=== PATIENT | male | born 1950 | race Caucasian/White ===

== ENCOUNTER 2022-06-14 15:52 | Inpatient (IN) | payer MEDICARE, MEDICAID ==
[~2022-06-14] VITALS: Ht 167.6 cm; Wt 47.6 kg
[2022-06-14] MEDS ORDERED: KETOROLAC 30MG/ML VIAL IV ONE (18:15)
[2022-06-14 19:45] LABS: CHLORIDE 107 mEq/L (98-107)
[2022-06-14 19:50] LABS: ETHANOL BLOOD < 10 mg/dL
[2022-06-14 20:13] LABS: BASOPHILS % 0.7 % (0.0-2.0); EOSINOPHILS % 0.4 % (0.0-5.0); HEMATOCRIT. 31.6 % (42.0-52.0); HEMOGLOBIN. 10.4 g/dL (14.0-18.0); LYMPHOCYTES % 10.5 % (20.0-50.0); MEAN CORPUSCULAR HEMOGLOBIN 29.4 pg (28.0-32.0); MEAN CORPUSCULAR VOLUME 88.9 fL (80.0-94.0); NEUTROPHILS % 78.4 % (40.0-76.0); PLATELET 179 x1000/uL (130-400); RED BLOOD CELL COUNT 3.55 mill/uL (4.7-6.1); RED CELL DISTRIBUTION WIDTH 13.9 % (11.6-14.6)
[2022-06-14] MEDS ORDERED: KETOROLAC 30MG/ML VIAL IV NR (21:00)
[2022-06-15] MEDS ORDERED: PANTOPRAZOLE SODIUM 40 MG/VIAL IV ONE (01:45)
[2022-06-15] MEDS ORDERED: MORPHINE SULFATE 2 MG/ML CPJ (NOT FOR IM USE) IV ONE (02:30)
[2022-06-15 06:22] LABS: BASOPHILS % 0.2 % (0.0-2.0); EOSINOPHILS % 0.3 % (0.0-5.0); HEMATOCRIT. 22.7 % (42.0-52.0); HEMOGLOBIN. 7.4 g/dL (14.0-18.0); LYMPHOCYTES % 10.8 % (20.0-50.0); MEAN CORPUSCULAR HEMOGLOBIN 29.2 pg (28.0-32.0); MEAN CORPUSCULAR VOLUME 89.3 fL (80.0-94.0); MEAN PLATELET VOLUME 7.8 fl (7.4-10.4); MONOCYTES % 9.7 % (2.0-8.0); PLATELET 173 x1000/uL (130-400); RED BLOOD CELL COUNT 2.55 mill/uL (4.7-6.1); RED CELL DISTRIBUTION WIDTH 13.6 % (11.6-14.6)
[2022-06-15 09:00] VITALS: BP 100/55
[2022-06-15] MEDS: DEXT 5%/0.9% NACL 1,000 ML IV SCH ×2 (11:14→22:15)
[2022-06-15 12:00] VITALS: BP 108/50
[2022-06-15 16:00] VITALS: BP 110/52
[2022-06-15 20:00] VITALS: BP 118/52
[2022-06-15] MEDS: PANTOPRAZOLE SODIUM 40 MG/VIAL IV SCH (22:15)
[2022-06-15] MEDS: ONDANSETRON HCL 4MG/2ML INJ IV PRN (22:15)
[2022-06-15] MEDS ORDERED: NALOXONE HCL 0.4MG/ML VIAL IV PRN (23:00)
[2022-06-15] MEDS: MORPHINE SULFATE 4 MG/ML CPJ (NOT FOR IM USE) IV PRN (23:21)
[2022-06-16] VITALS (7 sets, daily range): BP systolic 98–124; BP diastolic 52–68
[2022-06-16 06:10] LABS: BASOPHILS % 0.3 % (0.0-2.0); EOSINOPHILS % 1.1 % (0.0-5.0); HEMOGLOBIN. 8.3 g/dL (14.0-18.0); LYMPHOCYTES % 13.1 % (20.0-50.0); MEAN CORPUSCULAR HEMOGLOBIN 30.4 pg (28.0-32.0); MEAN CORPUSCULAR VOLUME 91.1 fL (80.0-94.0); MEAN PLATELET VOLUME 8.8 fl (7.4-10.4); MONOCYTES % 8.8 % (2.0-8.0); NEUTROPHILS % 76.7 % (40.0-76.0); PLATELET 232 x1000/uL (130-400); RED BLOOD CELL COUNT 2.74 mill/uL (4.7-6.1)
[2022-06-16 06:23] LABS: CHLORIDE 106 mEq/L (98-107)
[2022-06-16] MEDS: DEXT 5%/0.9% NACL 1,000 ML IV SCH ×2 (06:29→14:00)
[2022-06-16 06:38] LABS: TOTAL IRON BINDING CAPACITY 274 ug/dL (250-450)
[2022-06-16 07:01] LABS: FOLIC ACID (FOLATE) SERUM 6.3 ng/mL (>5.38)
[2022-06-16] MEDS: PANTOPRAZOLE SODIUM 40 MG/VIAL IV SCH ×2 (08:37→21:47)
[2022-06-16] MEDS: MORPHINE SULFATE 4 MG/ML CPJ (NOT FOR IM USE) IV PRN (10:02)
[2022-06-16] MEDS ORDERED: IRON SUCROSE COMPLEX 100 MG/5 ML ML IV SCH (14:00)
[2022-06-16] MEDS: HYDROCODONE/ACETAMINOPHEN 5/325MG TABLET PO PRN (21:01)
[2022-06-17] VITALS: BP 114/61
[2022-06-17] MEDS: DEXT 5%/0.9% NACL 1,000 ML IV SCH ×3 (01:30→22:38)
[2022-06-17 04:00] VITALS: BP 100/45
[2022-06-17] MEDS: HYDROCODONE/ACETAMINOPHEN 5/325MG TABLET PO PRN ×2 (05:54→15:17)
[2022-06-17 08:00] VITALS: BP 95/39
[2022-06-17] MEDS: FOLIC ACID 1MG TABLET PO SCH (09:00)
[2022-06-17] MEDS: PANTOPRAZOLE SODIUM 40 MG/VIAL IV SCH ×2 (11:44→22:37)
[2022-06-17 12:00] VITALS: BP 100/31
[2022-06-17 20:00] VITALS: BP 125/70
[2022-06-18] VITALS (7 sets, daily range): BP systolic 95–119; BP diastolic 41–65
[2022-06-18] MEDS: HYDROCODONE/ACETAMINOPHEN 5/325MG TABLET PO PRN ×3 (01:10→21:05)
[2022-06-18 06:29] LABS: BASOPHILS % 0.2 % (0.0-2.0); EOSINOPHILS % 0.7 % (0.0-5.0); HEMATOCRIT. 21.6 % (42.0-52.0); HEMOGLOBIN. 7.3 g/dL (14.0-18.0); LYMPHOCYTES % 8.2 % (20.0-50.0); MEAN CORPUSCULAR HEMOGLOBIN 30.1 pg (28.0-32.0); MEAN CORPUSCULAR VOLUME 88.9 fL (80.0-94.0); MEAN PLATELET VOLUME 8.3 fl (7.4-10.4); NEUTROPHILS % 81.9 % (40.0-76.0); PLATELET 236 x1000/uL (130-400); RED BLOOD CELL COUNT 2.43 mill/uL (4.7-6.1); RED CELL DISTRIBUTION WIDTH 14.4 % (11.6-14.6)
[2022-06-18 06:33] LABS: CHLORIDE 104 mEq/L (98-107)
[2022-06-18] MEDS: DEXT 5%/0.9% NACL 1,000 ML IV SCH (07:41)
[2022-06-18] MEDS: PANTOPRAZOLE SODIUM 40 MG/VIAL IV SCH (11:22)
[2022-06-18] MEDS: FOLIC ACID 1MG TABLET PO SCH (11:23)
[2022-06-18] MEDS: FLUOXETINE HCL 10 MG CAPSULE PO SCH (15:16)
[2022-06-18] MEDS: ARIPIPRAZOLE 5MG TABLET PO SCH (15:16)
[2022-06-18] MEDS ORDERED: POLYETHYLENE GLYCOL 3350 (17GM) 1 DOSE PACK PO NR (15:45)
[2022-06-18] MEDS: PANTOPRAZOLE 40MG DR TABLET PO SCH (21:05)
[2022-06-18] MEDS: SENNOSIDES 8.6MG TABLET PO SCH (21:05)
[2022-06-19] VITALS (7 sets, daily range): BP systolic 100–121; BP diastolic 42–55
[2022-06-19] MEDS: PANTOPRAZOLE 40MG DR TABLET PO SCH ×2 (06:22→21:37)
[2022-06-19 07:07] LABS: BASOPHILS % 0.3 % (0.0-2.0); EOSINOPHILS % 1.3 % (0.0-5.0); HEMATOCRIT. 21.5 % (42.0-52.0); HEMOGLOBIN. 7.2 g/dL (14.0-18.0); LYMPHOCYTES % 8.4 % (20.0-50.0); MEAN CORPUSCULAR HEMOGLOBIN 30.5 pg (28.0-32.0); MEAN PLATELET VOLUME 8.3 fl (7.4-10.4); MONOCYTES % 10.2 % (2.0-8.0); NEUTROPHILS % 79.8 % (40.0-76.0); PLATELET 267 x1000/uL (130-400); RED BLOOD CELL COUNT 2.36 mill/uL (4.7-6.1); RED CELL DISTRIBUTION WIDTH 14.8 % (11.6-14.6)
[2022-06-19 07:27] LABS: CHLORIDE 102 mEq/L (98-107)
[2022-06-19] MEDS: FOLIC ACID 1MG TABLET PO SCH (09:43)
[2022-06-19] MEDS: DOCUSATE SODIUM 250MG CAPSULE PO SCH ×2 (09:43→09:51)
[2022-06-19] MEDS: ARIPIPRAZOLE 5MG TABLET PO SCH (09:43)
[2022-06-19] MEDS: FLUOXETINE HCL 10 MG CAPSULE PO SCH (09:43)
[2022-06-19] MEDS: HYDROCODONE/ACETAMINOPHEN 5/325MG TABLET PO PRN (12:36)
[2022-06-19] MEDS: HALOPERIDOL LACTATE 5MG/ML VIAL IM PRN (19:18)
[2022-06-19] MEDS: SENNOSIDES 8.6MG TABLET PO SCH (21:37)
[2022-06-20] VITALS (8 sets, daily range): BP systolic 91–132; BP diastolic 44–77
[2022-06-20] MEDS: HALOPERIDOL LACTATE 5MG/ML VIAL IM PRN ×2 (01:57→11:12)
[2022-06-20] MEDS: HYDROCODONE/ACETAMINOPHEN 5/325MG TABLET PO PRN ×3 (03:04→22:03)
[2022-06-20] MEDS: PANTOPRAZOLE 40MG DR TABLET PO SCH ×2 (04:40→20:19)
[2022-06-20 06:21] LABS: CHLORIDE 102 mEq/L (98-107)
[2022-06-20 06:29] LABS: BASOPHILS % 0.3 % (0.0-2.0); EOSINOPHILS % 1.1 % (0.0-5.0); LYMPHOCYTES % 8.4 % (20.0-50.0); MEAN CORPUSCULAR VOLUME 93.8 fL (80.0-94.0); MONOCYTES % 9.2 % (2.0-8.0); PLATELET 232 x1000/uL (130-400); RED CELL DISTRIBUTION WIDTH 14.3 % (11.6-14.6)
[2022-06-20 08:05] LABS: HEMOGLOBIN. 6.9 g/dL (14.0-18.0)
[2022-06-20 08:06] LABS: HEMATOCRIT. 19.7 % (42.0-52.0)
[2022-06-20] MEDS: FOLIC ACID 1MG TABLET PO SCH (09:46)
[2022-06-20] MEDS: FLUOXETINE HCL 10 MG CAPSULE PO SCH (09:46)
[2022-06-20] MEDS: ARIPIPRAZOLE 5MG TABLET PO SCH (09:46)
[2022-06-20] MEDS: SENNOSIDES 8.6MG TABLET PO SCH (20:19)
[2022-06-21] VITALS: BP 109/60
[2022-06-21 03:01] LABS: HEMATOCRIT 26.5 % (42.0-52.0); HEMOGLOBIN 8.8 g/dL (14.0-18.0)
[2022-06-21 04:05] VITALS: BP 108/46
[2022-06-21] MEDS: HYDROCODONE/ACETAMINOPHEN 5/325MG TABLET PO PRN ×3 (05:18→19:56)
[2022-06-21 06:31] LABS: HEMATOCRIT. 24.9 % (42.0-52.0); HEMOGLOBIN. 8.2 g/dL (14.0-18.0); MEAN CORPUSCULAR HEMOGLOBIN 30.9 pg (28.0-32.0); MEAN CORPUSCULAR VOLUME 94.4 fL (80.0-94.0); MEAN PLATELET VOLUME 8.4 fl (7.4-10.4); PLATELET 238 x1000/uL (130-400); RED BLOOD CELL COUNT 2.64 mill/uL (4.7-6.1); RED CELL DISTRIBUTION WIDTH 15.1 % (11.6-14.6)
[2022-06-21 06:53] LABS: CHLORIDE 101 mEq/L (98-107)
[2022-06-21 08:00] VITALS: BP 106/52
[2022-06-21 08:42] LABS: PLATELET ESTIMATE NORMAL
[2022-06-21] MEDS: ARIPIPRAZOLE 5MG TABLET PO SCH ×2 (10:14→20:52)
[2022-06-21] MEDS: FLUOXETINE HCL 10 MG CAPSULE PO SCH (10:14)
[2022-06-21] MEDS: PANTOPRAZOLE 40MG DR TABLET PO SCH ×2 (10:14→20:52)
[2022-06-21] MEDS: DOCUSATE SODIUM 250MG CAPSULE PO SCH (10:15)
[2022-06-21] MEDS: FOLIC ACID 1MG TABLET PO SCH (10:15)
[2022-06-21 12:00] VITALS: BP 135/96
[2022-06-21 16:00] VITALS: BP 109/55
[2022-06-21 20:00] VITALS: BP 136/45
[2022-06-21] MEDS: SENNOSIDES 8.6MG TABLET PO SCH (20:52)
[2022-06-22] VITALS: BP 123/55
[2022-06-22] MEDS: HYDROCODONE/ACETAMINOPHEN 5/325MG TABLET PO PRN ×3 (02:39→18:37)
[2022-06-22 04:00] VITALS: BP 117/59
[2022-06-22] MEDS: PANTOPRAZOLE 40MG DR TABLET PO SCH ×2 (06:14→10:14)
[2022-06-22 06:35] LABS: BASOPHILS % 0.2 % (0.0-2.0); EOSINOPHILS % 0.8 % (0.0-5.0); HEMATOCRIT. 23.2 % (42.0-52.0); HEMOGLOBIN. 7.9 g/dL (14.0-18.0); LYMPHOCYTES % 7.2 % (20.0-50.0); MEAN CORPUSCULAR VOLUME 94.6 fL (80.0-94.0); MEAN PLATELET VOLUME 8.3 fl (7.4-10.4); MONOCYTES % 8.8 % (2.0-8.0); PLATELET 200 x1000/uL (130-400); RED BLOOD CELL COUNT 2.46 mill/uL (4.7-6.1); RED CELL DISTRIBUTION WIDTH 14.6 % (11.6-14.6)
[2022-06-22 06:50] LABS: CHLORIDE 97 mEq/L (98-107)
[2022-06-22 08:00] VITALS: BP 100/45
[2022-06-22] MEDS: FOLIC ACID 1MG TABLET PO SCH (10:14)
[2022-06-22] MEDS: FLUOXETINE HCL 10 MG CAPSULE PO SCH (10:14)
[2022-06-22] MEDS: DOCUSATE SODIUM 250MG CAPSULE PO SCH (10:14)
[2022-06-22] MEDS: ARIPIPRAZOLE 5MG TABLET PO SCH ×2 (10:16→21:14)
[2022-06-22 12:00] VITALS: BP 112/53
[2022-06-22 16:00] VITALS: BP 118/66
[2022-06-22 20:00] VITALS: BP 117/63
[2022-06-22] MEDS: SENNOSIDES 8.6MG TABLET PO SCH (21:14)
[2022-06-23] VITALS: BP 100/51
[2022-06-23] MEDS: HYDROCODONE/ACETAMINOPHEN 5/325MG TABLET PO PRN ×2 (01:02→13:59)
[2022-06-23 04:00] VITALS: BP 107/64
[2022-06-23] MEDS: PANTOPRAZOLE 40MG DR TABLET PO SCH ×2 (06:55→21:16)
[2022-06-23 08:00] VITALS: BP 120/46
[2022-06-23] MEDS: DOCUSATE SODIUM 250MG CAPSULE PO SCH (08:07)
[2022-06-23] MEDS: ARIPIPRAZOLE 5MG TABLET PO SCH ×2 (08:07→21:16)
[2022-06-23] MEDS: FLUOXETINE HCL 10 MG CAPSULE PO SCH (08:07)
[2022-06-23] MEDS: HALOPERIDOL LACTATE 5MG/ML VIAL IM PRN ×2 (08:08→14:12)
[2022-06-23] MEDS: FOLIC ACID 1MG TABLET PO SCH (08:08)
[2022-06-23 11:45] VITALS: BP 107/58
[2022-06-23 15:33] VITALS: BP 96/88
[2022-06-23 20:00] VITALS: BP 107/52
[2022-06-23] MEDS: SENNOSIDES 8.6MG TABLET PO SCH (21:16)
[2022-06-24] VITALS: BP 116/60
[2022-06-24 04:00] VITALS: BP 112/63
[2022-06-24] MEDS: HYDROCODONE/ACETAMINOPHEN 5/325MG TABLET PO PRN ×2 (04:15→18:33)
[2022-06-24] MEDS: PANTOPRAZOLE 40MG DR TABLET PO SCH ×2 (06:38→21:55)
[2022-06-24 07:59] LABS: HEMATOCRIT 24.9 % (42.0-52.0); HEMOGLOBIN 8.3 g/dL (14.0-18.0); MEAN CORPUSCULAR HEMOGLOBIN 30.6 pg (28.0-32.0); MEAN CORPUSCULAR VOLUME 92.2 fL (80.0-94.0); PLATELET 212 x1000/uL (130-400); RED CELL DISTRIBUTION WIDTH 14.7 % (11.6-14.6)
[2022-06-24] MEDS: DOCUSATE SODIUM 250MG CAPSULE PO SCH (09:05)
[2022-06-24] MEDS: ARIPIPRAZOLE 5MG TABLET PO SCH ×2 (09:05→21:55)
[2022-06-24] MEDS: FLUOXETINE HCL 10 MG CAPSULE PO SCH (09:05)
[2022-06-24] MEDS: FOLIC ACID 1MG TABLET PO SCH (09:05)
[2022-06-24 12:00] VITALS: BP 114/41
[2022-06-24] MEDS: HALOPERIDOL LACTATE 5MG/ML VIAL IM PRN (12:10)
[2022-06-24] MEDS ORDERED: SORBITOL 70% SOLN 30ML PO NR (16:45)
[2022-06-24 20:00] VITALS: BP_SYST 10; BP_SYST 108; BP_DIAS 62
[2022-06-24] MEDS: SENNOSIDES 8.6MG TABLET PO SCH (21:00)
[2022-06-25 00:05] VITALS: BP 112/64
[2022-06-25] MEDS: HYDROCODONE/ACETAMINOPHEN 5/325MG TABLET PO PRN ×4 (00:15→20:59)
[2022-06-25 04:00] VITALS: BP 120/66
[2022-06-25 06:27] LABS: BASOPHILS % 0.3 % (0.0-2.0); EOSINOPHILS % 0.8 % (0.0-5.0); HEMATOCRIT. 27.1 % (42.0-52.0); HEMOGLOBIN. 9.2 g/dL (14.0-18.0); LYMPHOCYTES % 8.1 % (20.0-50.0); MEAN CORPUSCULAR VOLUME 94.4 fL (80.0-94.0); MEAN PLATELET VOLUME 8.4 fl (7.4-10.4); MONOCYTES % 8.6 % (2.0-8.0); NEUTROPHILS % 82.2 % (40.0-76.0); PLATELET 204 x1000/uL (130-400); RED BLOOD CELL COUNT 2.87 mill/uL (4.7-6.1); RED CELL DISTRIBUTION WIDTH 14.8 % (11.6-14.6)
[2022-06-25 06:39] LABS: CHLORIDE 99 mEq/L (98-107)
[2022-06-25] MEDS: PANTOPRAZOLE 40MG DR TABLET PO SCH ×2 (06:54→20:59)
[2022-06-25 08:00] VITALS: BP 113/64
[2022-06-25] MEDS: DOCUSATE SODIUM 250MG CAPSULE PO SCH (09:00)
[2022-06-25] MEDS: FLUOXETINE HCL 10 MG CAPSULE PO SCH (09:37)
[2022-06-25] MEDS: ARIPIPRAZOLE 5MG TABLET PO SCH ×2 (09:37→20:59)
[2022-06-25] MEDS: FOLIC ACID 1MG TABLET PO SCH (09:37)
[2022-06-25 12:00] VITALS: BP 119/64
[2022-06-25 16:00] VITALS: BP 118/61
[2022-06-25 20:00] VITALS: BP 139/70
[2022-06-25] MEDS: SENNOSIDES 8.6MG TABLET PO SCH (21:00)
[2022-06-26] VITALS: BP 122/65
[2022-06-26] MEDS: HYDROCODONE/ACETAMINOPHEN 5/325MG TABLET PO PRN ×5 (02:02→22:02)
[2022-06-26 04:00] VITALS: BP 130/68
[2022-06-26] MEDS: PANTOPRAZOLE 40MG DR TABLET PO SCH ×2 (07:14→21:58)
[2022-06-26 07:16] LABS: HEMATOCRIT. 27.1 % (42.0-52.0); HEMOGLOBIN. 8.7 g/dL (14.0-18.0); MEAN CORPUSCULAR HEMOGLOBIN 29.4 pg (28.0-32.0); MEAN CORPUSCULAR VOLUME 91.3 fL (80.0-94.0); MEAN PLATELET VOLUME 8.5 fl (7.4-10.4); PLATELET 182 x1000/uL (130-400); RED BLOOD CELL COUNT 2.97 mill/uL (4.7-6.1); RED CELL DISTRIBUTION WIDTH 15.3 % (11.6-14.6)
[2022-06-26 07:29] LABS: CHLORIDE 99 mEq/L (98-107)
[2022-06-26] MEDS: FOLIC ACID 1MG TABLET PO SCH (09:00)
[2022-06-26] MEDS: FLUOXETINE HCL 10 MG CAPSULE PO SCH ×2 (09:00→10:44)
[2022-06-26] MEDS: DOCUSATE SODIUM 250MG CAPSULE PO SCH (09:00)
[2022-06-26] MEDS: ARIPIPRAZOLE 5MG TABLET PO SCH ×2 (09:00→10:44)
[2022-06-26 10:08] LABS: PLATELET ESTIMATE NORMAL
[2022-06-26 12:00] VITALS: BP 123/72
[2022-06-26 16:00] VITALS: BP 120/72
[2022-06-26 20:00] VITALS: BP 136/85
[2022-06-26] MEDS: SENNOSIDES 8.6MG TABLET PO SCH (21:58)
[2022-06-27 04:00] VITALS: BP 118/68
[2022-06-27 06:27] LABS: HEMATOCRIT. 26.7 % (42.0-52.0); HEMOGLOBIN. 9.1 g/dL (14.0-18.0); MEAN CORPUSCULAR HEMOGLOBIN 31.6 pg (28.0-32.0); MEAN CORPUSCULAR VOLUME 93.3 fL (80.0-94.0); MEAN PLATELET VOLUME 8.5 fl (7.4-10.4); PLATELET 175 x1000/uL (130-400); RED BLOOD CELL COUNT 2.87 mill/uL (4.7-6.1); RED CELL DISTRIBUTION WIDTH 15.3 % (11.6-14.6)
[2022-06-27 06:28] LABS: CHLORIDE 97 mEq/L (98-107)
[2022-06-27] MEDS: PANTOPRAZOLE 40MG DR TABLET PO SCH ×2 (06:43→20:11)
[2022-06-27] MEDS: HYDROCODONE/ACETAMINOPHEN 5/325MG TABLET PO PRN ×2 (06:44→20:12)
[2022-06-27 08:00] VITALS: BP 118/67
[2022-06-27] MEDS: DOCUSATE SODIUM 250MG CAPSULE PO SCH (08:30)
[2022-06-27] MEDS: ARIPIPRAZOLE 5MG TABLET PO SCH ×2 (08:30→20:11)
[2022-06-27] MEDS: FOLIC ACID 1MG TABLET PO SCH (08:30)
[2022-06-27] MEDS: HALOPERIDOL LACTATE 5MG/ML VIAL IM PRN (10:06)
[2022-06-27] MEDS: ONDANSETRON HCL 4MG/2ML INJ IV PRN (10:20)
[2022-06-27 10:23] LABS: PLATELET ESTIMATE NORMAL
[2022-06-27] MEDS ORDERED: ONDANSETRON 4MG ODT PO PRN (16:45)
[2022-06-27] MEDS ORDERED: NALOXONE HCL 0.4MG/ML VIAL IV PRN (18:15)
[2022-06-27 20:09] VITALS: BP 119/69
[2022-06-27] MEDS: SENNOSIDES 8.6MG TABLET PO SCH (20:15)
[2022-06-28] VITALS: BP 100/66
[2022-06-28 04:15] VITALS: BP 122/70
[2022-06-28] MEDS: HYDROCODONE/ACETAMINOPHEN 5/325MG TABLET PO PRN (04:17)
[2022-06-28] MEDS: PANTOPRAZOLE 40MG DR TABLET PO SCH ×2 (06:31→19:38)
[2022-06-28 08:00] VITALS: BP 120/68
[2022-06-28] MEDS: DOCUSATE SODIUM 250MG CAPSULE PO SCH (09:32)
[2022-06-28] MEDS: ARIPIPRAZOLE 5MG TABLET PO SCH ×2 (09:32→19:38)
[2022-06-28] MEDS: FOLIC ACID 1MG TABLET PO SCH (09:32)
[2022-06-28] MEDS: FLUOXETINE HCL 10 MG CAPSULE PO SCH (09:32)
[2022-06-28 10:02] LABS: BASOPHILS % 0.2 % (0.0-2.0); EOSINOPHILS % 0.4 % (0.0-5.0); HEMATOCRIT. 28.8 % (42.0-52.0); HEMOGLOBIN. 9.2 g/dL (14.0-18.0); LYMPHOCYTES % 8.1 % (20.0-50.0); MEAN CORPUSCULAR HEMOGLOBIN 29.1 pg (28.0-32.0); MEAN PLATELET VOLUME 7.9 fl (7.4-10.4); MONOCYTES % 8.6 % (2.0-8.0); NEUTROPHILS % 82.7 % (40.0-76.0); PLATELET 225 x1000/uL (130-400); RED BLOOD CELL COUNT 3.16 mill/uL (4.7-6.1); RED CELL DISTRIBUTION WIDTH 15.9 % (11.6-14.6)
[2022-06-28 10:14] LABS: CHLORIDE 97 mEq/L (98-107)
[2022-06-28] MEDS: HALOPERIDOL LACTATE 5MG/ML VIAL IM PRN ×2 (13:41→19:55)
[2022-06-28 16:00] VITALS: BP 98/62
[2022-06-28] MEDS: SENNOSIDES 8.6MG TABLET PO SCH (19:38)
[2022-06-29] MEDS: HYDROCODONE/ACETAMINOPHEN 5/325MG TABLET PO PRN ×4 (00:24→23:28)
[2022-06-29] MEDS: HALOPERIDOL LACTATE 5MG/ML VIAL IM PRN (05:03)
[2022-06-29 08:00] VITALS: BP 98/46
[2022-06-29] MEDS: ARIPIPRAZOLE 5MG TABLET PO SCH ×2 (08:29→20:01)
[2022-06-29] MEDS: DOCUSATE SODIUM 250MG CAPSULE PO SCH (08:29)
[2022-06-29] MEDS: PANTOPRAZOLE 40MG DR TABLET PO SCH ×2 (08:29→20:01)
[2022-06-29] MEDS: FLUOXETINE HCL 10 MG CAPSULE PO SCH (08:29)
[2022-06-29] MEDS: FOLIC ACID 1MG TABLET PO SCH (08:30)
[2022-06-29 16:00] VITALS: BP 112/51
[2022-06-29 20:00] VITALS: BP 114/70
[2022-06-29] MEDS: SENNOSIDES 8.6MG TABLET PO SCH (20:01)
[2022-06-30] VITALS (7 sets, daily range): BP systolic 109–136; BP diastolic 41–80
[2022-06-30] MEDS: HYDROCODONE/ACETAMINOPHEN 5/325MG TABLET PO PRN ×5 (05:13→20:58)
[2022-06-30] MEDS: FOLIC ACID 1MG TABLET PO SCH (08:16)
[2022-06-30] MEDS: ARIPIPRAZOLE 5MG TABLET PO SCH ×2 (08:16→20:25)
[2022-06-30] MEDS: FLUOXETINE HCL 10 MG CAPSULE PO SCH (08:16)
[2022-06-30] MEDS: DOCUSATE SODIUM 250MG CAPSULE PO SCH (08:17)
[2022-06-30] MEDS: PANTOPRAZOLE 40MG DR TABLET PO SCH ×2 (08:17→20:25)
[2022-06-30] MEDS: HALOPERIDOL LACTATE 5MG/ML VIAL IM PRN ×2 (08:21→21:35)
[2022-06-30 08:25] LABS: HEMOGLOBIN. 8.9 g/dL (14.0-18.0); MEAN CORPUSCULAR HEMOGLOBIN 30.2 pg (28.0-32.0); MEAN CORPUSCULAR VOLUME 91.3 fL (80.0-94.0); MEAN PLATELET VOLUME 8.8 fl (7.4-10.4); PLATELET 205 x1000/uL (130-400); RED BLOOD CELL COUNT 2.95 mill/uL (4.7-6.1); RED CELL DISTRIBUTION WIDTH 15.7 % (11.6-14.6)
[2022-06-30 08:29] LABS: CHLORIDE 96 mEq/L (98-107)
[2022-06-30 12:24] LABS: PLATELET ESTIMATE NORMAL
[2022-06-30] MEDS: SENNOSIDES 8.6MG TABLET PO SCH (20:25)
[2022-07-01 00:48] VITALS: BP 116/64
[2022-07-01] MEDS: HYDROCODONE/ACETAMINOPHEN 5/325MG TABLET PO PRN ×2 (03:00→22:00)
[2022-07-01] MEDS: ARIPIPRAZOLE 5MG TABLET PO SCH ×2 (08:23→21:59)
[2022-07-01] MEDS: DOCUSATE SODIUM 250MG CAPSULE PO SCH (08:23)
[2022-07-01] MEDS: FOLIC ACID 1MG TABLET PO SCH (08:23)
[2022-07-01] MEDS: PANTOPRAZOLE 40MG DR TABLET PO SCH ×2 (08:23→21:00)
[2022-07-01] MEDS: FLUOXETINE HCL 10 MG CAPSULE PO SCH (08:23)
[2022-07-01] MEDS ORDERED: SODIUM CHLORIDE 0.9% 500 ML IV ONE (18:30)
[2022-07-01 20:00] VITALS: BP 115/64
[2022-07-01] MEDS: SENNOSIDES 8.6MG TABLET PO SCH (21:59)
[2022-07-02] VITALS: BP 100/42
[2022-07-02] MEDS: HALOPERIDOL LACTATE 5MG/ML VIAL IM PRN ×4 (01:55→21:12)
[2022-07-02 04:00] VITALS: BP 115/69
[2022-07-02 08:00] VITALS: BP 115/70
[2022-07-02] MEDS: ARIPIPRAZOLE 5MG TABLET PO SCH ×2 (08:32→21:00)
[2022-07-02] MEDS: DOCUSATE SODIUM 250MG CAPSULE PO SCH (08:32)
[2022-07-02] MEDS: FOLIC ACID 1MG TABLET PO SCH (08:33)
[2022-07-02] MEDS: PANTOPRAZOLE 40MG DR TABLET PO SCH ×2 (08:33→21:00)
[2022-07-02] MEDS: FLUOXETINE HCL 10 MG CAPSULE PO SCH (08:34)
[2022-07-02] MEDS: HYDROCODONE/ACETAMINOPHEN 5/325MG TABLET PO PRN ×2 (08:34→14:35)
[2022-07-02 12:00] VITALS: BP 119/66
[2022-07-02 16:00] VITALS: BP 95/48
[2022-07-02 20:00] VITALS: BP 85/38
[2022-07-02] MEDS: SENNOSIDES 8.6MG TABLET PO SCH (21:00)
[2022-07-02] MEDS: DIVALPROEX SODIUM 250MG DR TABLET PO SCH (21:13)
[2022-07-03] VITALS: BP 94/43
[2022-07-03] MEDS: HALOPERIDOL LACTATE 5MG/ML VIAL IM PRN ×4 (03:51→18:21)
[2022-07-03 04:00] VITALS: BP 111/43
[2022-07-03] MEDS: DIVALPROEX SODIUM 250MG DR TABLET PO SCH ×3 (06:00→21:20)
[2022-07-03 08:00] VITALS: BP 94/47
[2022-07-03] MEDS: ARIPIPRAZOLE 5MG TABLET PO SCH ×2 (09:12→21:20)
[2022-07-03] MEDS: FLUOXETINE HCL 20MG CAPSULE PO SCH (09:12)
[2022-07-03] MEDS: FOLIC ACID 1MG TABLET PO SCH (09:13)
[2022-07-03] MEDS: PANTOPRAZOLE 40MG DR TABLET PO SCH ×2 (09:13→21:19)
[2022-07-03] MEDS: DOCUSATE SODIUM 250MG CAPSULE PO SCH (09:13)
[2022-07-03 12:00] VITALS: BP 91/47
[2022-07-03 16:00] VITALS: BP 91/49
[2022-07-03] MEDS ORDERED: NALOXONE HCL 0.4MG/ML VIAL IV PRN (16:45)
[2022-07-03 20:27] VITALS: BP 105/50
[2022-07-03] MEDS: SENNOSIDES 8.6MG TABLET PO SCH (21:19)
[2022-07-04] VITALS: BP 109/64
[2022-07-04] MEDS: HALOPERIDOL LACTATE 5MG/ML VIAL IM PRN ×3 (00:23→20:06)
[2022-07-04 04:00] VITALS: BP_SYST 104; BP_SYST 109; BP_DIAS 59; BP_DIAS 61
[2022-07-04] MEDS: PANTOPRAZOLE 40MG DR TABLET PO SCH ×2 (06:25→21:18)
[2022-07-04] MEDS: DIVALPROEX SODIUM 250MG DR TABLET PO SCH ×3 (06:25→21:18)
[2022-07-04] MEDS: DOCUSATE SODIUM 250MG CAPSULE PO SCH (09:00)
[2022-07-04] MEDS: FOLIC ACID 1MG TABLET PO SCH (09:20)
[2022-07-04] MEDS: ARIPIPRAZOLE 5MG TABLET PO SCH ×2 (09:20→21:18)
[2022-07-04] MEDS: FLUOXETINE HCL 20MG CAPSULE PO SCH (09:20)
[2022-07-04] MEDS: HYDROCODONE/ACETAMINOPHEN 5/325MG TABLET PO PRN (09:21)
[2022-07-04 12:00] VITALS: BP 102/59
[2022-07-04 16:00] VITALS: BP 118/60
[2022-07-04 17:59] LABS: BASOPHILS % 0.3 % (0.0-2.0); EOSINOPHILS % 0.1 % (0.0-5.0); HEMATOCRIT. 30.9 % (42.0-52.0); HEMOGLOBIN. 9.8 g/dL (14.0-18.0); LYMPHOCYTES % 8.1 % (20.0-50.0); MEAN CORPUSCULAR HEMOGLOBIN 29.3 pg (28.0-32.0); MEAN CORPUSCULAR VOLUME 92.3 fL (80.0-94.0); MEAN PLATELET VOLUME 8.5 fl (7.4-10.4); MONOCYTES % 6.5 % (2.0-8.0); PLATELET 235 x1000/uL (130-400); RED BLOOD CELL COUNT 3.35 mill/uL (4.7-6.1); RED CELL DISTRIBUTION WIDTH 17.1 % (11.6-14.6)
[2022-07-04 18:45] LABS: CHLORIDE 94 mEq/L (98-107)
[2022-07-04] MEDS: SENNOSIDES 8.6MG TABLET PO SCH (21:18)
[2022-07-05] VITALS: BP 109/46
[2022-07-05 04:00] VITALS: BP 111/55
[2022-07-05] MEDS: HALOPERIDOL LACTATE 5MG/ML VIAL IM PRN (04:09)
[2022-07-05] MEDS: PANTOPRAZOLE 40MG DR TABLET PO SCH ×2 (06:30→22:20)
[2022-07-05] MEDS: DIVALPROEX SODIUM 250MG DR TABLET PO SCH ×3 (06:30→22:20)
[2022-07-05] MEDS: DOCUSATE SODIUM 250MG CAPSULE PO SCH (09:00)
[2022-07-05] MEDS: FOLIC ACID 1MG TABLET PO SCH (14:53)
[2022-07-05] MEDS: ARIPIPRAZOLE 5MG TABLET PO SCH ×2 (14:53→22:20)
[2022-07-05] MEDS: FLUOXETINE HCL 20MG CAPSULE PO SCH (14:53)
[2022-07-05 16:00] VITALS: BP 109/65
[2022-07-05 20:00] VITALS: BP 123/67
[2022-07-05] MEDS: HYDROCODONE/ACETAMINOPHEN 5/325MG TABLET PO PRN (20:09)
[2022-07-05] MEDS: SENNOSIDES 8.6MG TABLET PO SCH (22:20)
[2022-07-06] VITALS (12 sets, daily range): BP systolic 68–110; BP diastolic 35–62
[2022-07-06] MEDS: DEXT 5%/0.45% NACL 1000ML 1,000 ML IV SCH ×2 (00:05→13:40)
[2022-07-06] MEDS: HALOPERIDOL LACTATE 5MG/ML VIAL IM PRN (02:44)
[2022-07-06] MEDS: HYDROCODONE/ACETAMINOPHEN 5/325MG TABLET PO PRN (02:47)
[2022-07-06] MEDS: PANTOPRAZOLE 40MG DR TABLET PO SCH ×2 (06:24→21:00)
[2022-07-06] MEDS: DIVALPROEX SODIUM 250MG DR TABLET PO SCH ×3 (06:25→21:31)
[2022-07-06 08:58] LABS: HEMATOCRIT. 28.9 % (42.0-52.0); HEMOGLOBIN. 9.1 g/dL (14.0-18.0); MEAN CORPUSCULAR HEMOGLOBIN 28.6 pg (28.0-32.0); MEAN CORPUSCULAR VOLUME 90.4 fL (80.0-94.0); MEAN PLATELET VOLUME 7.7 fl (7.4-10.4); PLATELET 191 x1000/uL (130-400); RED CELL DISTRIBUTION WIDTH 16.8 % (11.6-14.6)
[2022-07-06 09:05] LABS: CHLORIDE 95 mEq/L (98-107)
[2022-07-06] MEDS: FLUOXETINE HCL 20MG CAPSULE PO SCH (09:17)
[2022-07-06] MEDS: ARIPIPRAZOLE 5MG TABLET PO SCH ×2 (09:17→21:00)
[2022-07-06] MEDS: DOCUSATE SODIUM 250MG CAPSULE PO SCH (09:17)
[2022-07-06] MEDS: FOLIC ACID 1MG TABLET PO SCH (09:18)
[2022-07-06 10:36] LABS: PLATELET ESTIMATE NORMAL
[2022-07-06] MEDS ORDERED: LEVETIRACETAM 1,000 MG in SODIUM CHLORIDE 0.9% 100 ML IV SCH (16:00)
[2022-07-06 16:24] LABS: BG BASE EXCESS -4.3 mmol/L (-2.0-2.0); BG CARBOXYHEMOGLOBIN 0.3 % (0.5-1.5); BG FRACTION INSPIRED OXYGEN 100; BG HCO3 ACT 18.8 mmol/L (22.0-26.0); BG METHEMOGLOBIN 0.2 % (0.0-1.5); BG OXYHEMOGLOBIN 98.5 % (94.0-97.0); BG PCO2 28.5 mmHg (35.0-45.0); BG PH 7.437 (7.350-7.450); BG PO2 144.8 mmHg (75.0-100.0); BG SAMPLE SITE RIGHT RADIAL; BG TOTAL HEMOGLOBIN 11.5 g/dL (12.0-18.0); BG VENT MODE MASK - NRB
[2022-07-06] MEDS ORDERED: LEVETIRACETAM 1000MG PREMIX 100 ML IV NR (18:30)
[2022-07-06] MEDS ORDERED: LEVETIRACETAM 500MG/5ML CUP PO SCH (21:00)
[2022-07-06] MEDS: SENNOSIDES 8.6MG TABLET PO SCH (21:00)
[2022-07-07 00:04] VITALS: BP 91/52
[2022-07-07] MEDS: DEXT 5%/0.45% NACL 1000ML 1,000 ML IV SCH ×2 (03:00→16:20)
[2022-07-07 04:00] VITALS: BP 95/55
[2022-07-07] MEDS: DIVALPROEX SODIUM 250MG DR TABLET PO SCH ×3 (05:20→22:13)
[2022-07-07] MEDS ORDERED: CEFTRIAXONE 1 G PREMIX 50 ML IV SCH (06:30)
[2022-07-07] MEDS: PANTOPRAZOLE 40MG DR TABLET PO SCH ×2 (06:44→22:13)
[2022-07-07 08:00] VITALS: BP 110/56
[2022-07-07] MEDS ORDERED: CEFTRIAXONE 1,000 MG in DEXTROSE 5% WATER 50 ML IV SCH (08:00)
[2022-07-07 08:51] LABS: HEMATOCRIT. 28.5 % (42.0-52.0); MEAN CORPUSCULAR HEMOGLOBIN 29.2 pg (28.0-32.0); MEAN CORPUSCULAR VOLUME 92.3 fL (80.0-94.0); MEAN PLATELET VOLUME 8.3 fl (7.4-10.4); PLATELET 165 x1000/uL (130-400); RED BLOOD CELL COUNT 3.09 mill/uL (4.7-6.1)
[2022-07-07] MEDS: LEVETIRACETAM 500MG/5ML CUP PO SCH ×2 (09:00→22:13)
[2022-07-07] MEDS: FLUOXETINE HCL 20MG CAPSULE PO SCH (09:00)
[2022-07-07] MEDS: ARIPIPRAZOLE 5MG TABLET PO SCH ×2 (09:00→22:12)
[2022-07-07] MEDS: FOLIC ACID 1MG TABLET PO SCH (09:00)
[2022-07-07] MEDS: DOCUSATE SODIUM 250MG CAPSULE PO SCH (09:00)
[2022-07-07 09:40] LABS: CHLORIDE 101 mEq/L (98-107)
[2022-07-07 09:46] LABS: PLATELET ESTIMATE NORMAL
[2022-07-07] MEDS ORDERED: MEROPENEM 500 MG in SODIUM CHLORIDE 0.9% 50 ML IV SCH (11:45)
[2022-07-07 12:00] VITALS: BP 110/56
[2022-07-07] MEDS ORDERED: VANCOMYCIN 1GM PMX (XELLIA) 200 ML IV SCH (13:00)
[2022-07-07] MEDS: MEROPENEM 500MG in NORMAL SALINE 50ML IV SCH ×2 (13:15→21:45)
[2022-07-07] MEDS ORDERED: PIPERACILLIN/TAZOBACTAM 3.375 G in DEXTROSE 5% WATER 50 ML IV SCH (14:00)
[2022-07-07] MEDS ORDERED: VANCOMYCIN 1G PREMIX 200 ML IV SCH (15:30)
[2022-07-07 15:34] VITALS: BP 99/48
[2022-07-07 19:48] LABS: CLARITY URINE CLEAR (CLEAR); COLOR URINE DARK YELLOW (YELLOW); KETONES URINE TRACE (NEGATIVE); LEUKOCYTE ESTERASE URINE NEGATIVE (NEGATIVE); NITRITE URINE NEGATIVE (NEGATIVE); OCCULT BLOOD URINE NEGATIVE (NEGATIVE); PROTEIN URINE 1+ (NEGATIVE); SPECIFIC GRAVITY URINE 1.019 (1.005-1.030)
[2022-07-07 20:00] VITALS: BP 94/52
[2022-07-07] MEDS: VANCOMYCIN 500MG PREMIX 100 ML IV SCH (21:46)
[2022-07-07] MEDS: SENNOSIDES 8.6MG TABLET PO SCH (22:13)
[2022-07-08] VITALS: BP 102/51
[2022-07-08 04:00] VITALS: BP 90/52
[2022-07-08] MEDS: DEXT 5%/0.45% NACL 1000ML 1,000 ML IV SCH ×2 (06:36→20:50)
[2022-07-08] MEDS: PANTOPRAZOLE 40MG DR TABLET PO SCH ×2 (06:37→21:42)
[2022-07-08] MEDS: DIVALPROEX SODIUM 250MG DR TABLET PO SCH ×3 (06:37→21:42)
[2022-07-08 08:00] VITALS: BP 126/52
[2022-07-08] MEDS: MEROPENEM 500MG in NORMAL SALINE 50ML IV SCH (10:29)
[2022-07-08] MEDS: ARIPIPRAZOLE 5MG TABLET PO SCH ×2 (10:30→21:41)
[2022-07-08] MEDS: FLUOXETINE HCL 20MG CAPSULE PO SCH (10:30)
[2022-07-08] MEDS: VANCOMYCIN 500MG PREMIX 100 ML IV SCH (10:33)
[2022-07-08] MEDS: LEVETIRACETAM 500MG/5ML CUP PO SCH ×2 (10:51→21:42)
[2022-07-08] MEDS: FOLIC ACID 1MG TABLET PO SCH (10:51)
[2022-07-08 12:00] VITALS: BP 96/54
[2022-07-08] MEDS: DOCUSATE SODIUM SUGAR FREE 100MG/10ML UDC NG SCH (12:25)
[2022-07-08] MEDS ORDERED: CEFTRIAXONE 1 G PREMIX 50 ML IV SCH (15:30)
[2022-07-08 16:00] VITALS: BP 95/58
[2022-07-08 20:00] VITALS: BP 108/64
[2022-07-08] MEDS: METRONIDAZOLE 500 MG PREMIX 100 ML IV SCH (20:49)
[2022-07-08] MEDS: CEFTRIAXONE 1,000 MG in DEXTROSE 5% WATER 50 ML IV SCH (20:49)
[2022-07-08] MEDS: SENNOSIDES 8.6MG TABLET PO SCH (21:42)
[2022-07-09] VITALS: BP 100/61
[2022-07-09 04:00] VITALS: BP 102/59
[2022-07-09] MEDS: METRONIDAZOLE 500 MG PREMIX 100 ML IV SCH ×2 (06:22→17:45)
[2022-07-09] MEDS: DIVALPROEX SODIUM 250MG DR TABLET PO SCH ×3 (06:23→22:06)
[2022-07-09] MEDS: PANTOPRAZOLE 40MG DR TABLET PO SCH ×2 (06:23→22:05)
[2022-07-09] MEDS: DEXT 5%/0.45% NACL 1000ML 1,000 ML IV SCH ×2 (06:24→22:06)
[2022-07-09 07:28] LABS: HEMOGLOBIN. 9.9 g/dL (14.0-18.0); MEAN CORPUSCULAR HEMOGLOBIN 29.3 pg (28.0-32.0); MEAN CORPUSCULAR VOLUME 91.9 fL (80.0-94.0); MEAN PLATELET VOLUME 8.6 fl (7.4-10.4); PLATELET 216 x1000/uL (130-400); RED BLOOD CELL COUNT 3.38 mill/uL (4.7-6.1); RED CELL DISTRIBUTION WIDTH 17.1 % (11.6-14.6)
[2022-07-09 08:00] VITALS: BP 109/60
[2022-07-09 09:06] LABS: % CD 3 POS. LYMPHOCYTES 74.4 % (57.5-86.2); % CD 4 POS. LYMPHOCYTES 28.8 % (30.8-58.5); % CD 8 POS. LYMPH 46.1 % (12.0-35.5); ABSOLUTE CD 3 595 /uL (622-2402); ABSOLUTE CD 4 HELPER 230 /uL (359-1519); ABSOLUTE CD 8 SUPPRESSOR 369 /uL (109-897); ABSOLUTE LYMPHOCYTES 0.8 x10E3/uL (0.7-3.1); ABSOLUTE MONOCYTES 0.8 x10E3/uL (0.1-0.9); ABSOLUTE NEUTROPHILS 15.7 x10E3/uL (1.4-7.0); BASOPHILS 0 % (Not Estab.); CD4/CD8 RATIO 0.62 (0.92-3.72); HEMATOCRIT 30.2 % (37.5-51.0); HEMOGLOBIN 10.5 g/dL (13.0-17.7); IMMATURE GRANULOCYTES 1 % (Not Estab.); IMMATURE GRANULOCYTES ABSOLUTE 0.2 x10E3/uL (0.0-0.1); LYMPHOCYTES 5 % (Not Estab.); MEAN CORPUSCULAR HEMOGLOBIN 31.6 pg (26.6-33.0); MEAN CORPUSCULAR HGB CONC. 34.8 g/dL (31.5-35.7); MEAN CORPUSCULAR VOLUME 91 fL (79-97); MONOCYTES 5 % (Not Estab.); NEUTROPHILS 89 % (Not Estab.); PLATELETS 206 x10E3/uL (150-450); RBC 3.32 x10E6/uL (4.14-5.80); RED CELL DISTRIBUTION WIDTH 14.9 % (11.6-15.4); WBC 17.6 x10E3/uL (3.4-10.8)
[2022-07-09 09:16] LABS: NUCLEATED RED BLOOD CELLS 1 /100 WBC; PLATELET ESTIMATE NORMAL
[2022-07-09 10:04] LABS: CHLORIDE 102 mEq/L (98-107)
[2022-07-09] MEDS: LEVETIRACETAM 500MG/5ML CUP PO SCH ×2 (10:19→22:05)
[2022-07-09] MEDS: FOLIC ACID 1MG TABLET PO SCH (10:19)
[2022-07-09] MEDS: DOCUSATE SODIUM SUGAR FREE 100MG/10ML UDC NG SCH (10:19)
[2022-07-09] MEDS: ARIPIPRAZOLE 5MG TABLET PO SCH ×2 (10:19→22:05)
[2022-07-09] MEDS: FLUOXETINE HCL 20MG CAPSULE PO SCH (10:19)
[2022-07-09 12:00] VITALS: BP 99/54
[2022-07-09 16:00] VITALS: BP 115/61
[2022-07-09] MEDS: CEFTRIAXONE 1,000 MG in DEXTROSE 5% WATER 50 ML IV SCH (17:45)
[2022-07-09 20:00] VITALS: BP 110/62
[2022-07-09] MEDS: SENNOSIDES 8.6MG TABLET PO SCH (22:06)
[2022-07-10] VITALS: BP 111/55
[2022-07-10 04:00] VITALS: BP 109/60
[2022-07-10] MEDS: METRONIDAZOLE 500 MG PREMIX 100 ML IV SCH ×2 (05:47→17:28)
[2022-07-10] MEDS: DIVALPROEX SODIUM 250MG DR TABLET PO SCH ×3 (05:48→20:40)
[2022-07-10] MEDS: PANTOPRAZOLE 40MG DR TABLET PO SCH ×2 (05:48→20:40)
[2022-07-10 08:01] VITALS: BP 106/62
[2022-07-10] MEDS: DOCUSATE SODIUM SUGAR FREE 100MG/10ML UDC NG SCH (09:00)
[2022-07-10] MEDS: FOLIC ACID 1MG TABLET PO SCH (09:19)
[2022-07-10] MEDS: FLUOXETINE HCL 20MG CAPSULE PO SCH (09:19)
[2022-07-10] MEDS: ARIPIPRAZOLE 5MG TABLET PO SCH ×2 (09:19→20:41)
[2022-07-10] MEDS: LEVETIRACETAM 500MG/5ML CUP PO SCH ×2 (09:19→20:40)
[2022-07-10] MEDS: DEXT 5%/0.45% NACL 1000ML 1,000 ML IV SCH (11:46)
[2022-07-10 12:00] VITALS: BP 99/61
[2022-07-10 14:14] LABS: BG BASE EXCESS -3.4 mmol/L (-2.0-2.0); BG CARBOXYHEMOGLOBIN 0.2 % (0.5-1.5); BG DEOXYHEMOGLOBIN 11.1 % (0.0-5.0); BG FRACTION INSPIRED OXYGEN 36; BG HCO3 ACT 20.4 mmol/L (22.0-26.0); BG METHEMOGLOBIN 0.3 % (0.0-1.5); BG OXYGEN SATURATION 88.8 % (92.0-98.5); BG OXYHEMOGLOBIN 88.4 % (94.0-97.0); BG PCO2 32.4 mmHg (35.0-45.0); BG PH 7.417 (7.350-7.450); BG SAMPLE SITE RIGHT RADIAL; BG VENT MODE NASAL CANNULA
[2022-07-10] MEDS: DEXAMETHASONE 4MG TABLET PO SCH (14:19)
[2022-07-10 16:00] VITALS: BP 126/67
[2022-07-10] MEDS: CEFTRIAXONE 1,000 MG in DEXTROSE 5% WATER 50 ML IV SCH (17:28)
[2022-07-10 20:00] VITALS: BP 117/60
[2022-07-10] MEDS: SENNOSIDES 8.6MG TABLET PO SCH (20:41)
[2022-07-11] VITALS: BP 104/64
[2022-07-11] MEDS: DEXT 5%/0.45% NACL 1000ML 1,000 ML IV SCH ×2 (00:46→15:13)
[2022-07-11 04:00] VITALS: BP 110/66
[2022-07-11] MEDS: PANTOPRAZOLE 40MG DR TABLET PO SCH ×2 (05:46→21:34)
[2022-07-11] MEDS: METRONIDAZOLE 500 MG PREMIX 100 ML IV SCH ×2 (05:46→19:02)
[2022-07-11] MEDS: DIVALPROEX SODIUM 250MG DR TABLET PO SCH ×3 (05:46→21:34)
[2022-07-11 07:54] VITALS: BP 105/66
[2022-07-11] MEDS: LEVETIRACETAM 500MG/5ML CUP PO SCH ×2 (08:45→21:34)
[2022-07-11] MEDS: FOLIC ACID 1MG TABLET PO SCH (08:46)
[2022-07-11] MEDS: FLUOXETINE HCL 20MG CAPSULE PO SCH (08:46)
[2022-07-11] MEDS: DEXAMETHASONE 4MG TABLET PO SCH (08:46)
[2022-07-11] MEDS: ARIPIPRAZOLE 5MG TABLET PO SCH ×2 (08:46→21:34)
[2022-07-11] MEDS: DOCUSATE SODIUM SUGAR FREE 100MG/10ML UDC NG SCH (09:00)
[2022-07-11 12:00] VITALS: BP 106/66
[2022-07-11 16:00] VITALS: BP 104/57
[2022-07-11] MEDS: CEFTRIAXONE 1,000 MG in DEXTROSE 5% WATER 50 ML IV SCH (17:21)
[2022-07-11 20:00] VITALS: BP 97/64
[2022-07-11] MEDS: SENNOSIDES 8.6MG TABLET PO SCH (21:00)
[2022-07-12] VITALS: BP 102/57
[2022-07-12] MEDS: DEXT 5%/0.45% NACL 1000ML 1,000 ML IV SCH (03:00)
[2022-07-12 04:00] VITALS: BP 92/58
[2022-07-12] MEDS: METRONIDAZOLE 500 MG PREMIX 100 ML IV SCH ×2 (06:14→21:08)
[2022-07-12] MEDS: DIVALPROEX SODIUM 250MG DR TABLET PO SCH (06:14)
[2022-07-12 06:40] LABS: CHLORIDE 105 mEq/L (98-107)
[2022-07-12 06:41] LABS: HEMATOCRIT. 34.2 % (42.0-52.0); HEMOGLOBIN. 11.2 g/dL (14.0-18.0); MEAN CORPUSCULAR HEMOGLOBIN 29.9 pg (28.0-32.0); MEAN CORPUSCULAR VOLUME 91.4 fL (80.0-94.0); MEAN PLATELET VOLUME 8.3 fl (7.4-10.4); PLATELET 179 x1000/uL (130-400); RED BLOOD CELL COUNT 3.74 mill/uL (4.7-6.1); RED CELL DISTRIBUTION WIDTH 17.5 % (11.6-14.6)
[2022-07-12 08:00] VITALS: BP 97/57
[2022-07-12] MEDS: DOCUSATE SODIUM SUGAR FREE 100MG/10ML UDC NG SCH (10:25)
[2022-07-12] MEDS: ARIPIPRAZOLE 5MG TABLET PO SCH ×2 (10:26→21:08)
[2022-07-12] MEDS: FOLIC ACID 1MG TABLET PO SCH (10:26)
[2022-07-12] MEDS: DEXAMETHASONE 4MG TABLET PO SCH (10:26)
[2022-07-12] MEDS: LEVETIRACETAM 500MG/5ML CUP PO SCH ×2 (10:26→21:08)
[2022-07-12 16:00] VITALS: BP 98/63
[2022-07-12] MEDS: CEFTRIAXONE 1,000 MG in DEXTROSE 5% WATER 50 ML IV SCH (17:00)
[2022-07-12] MEDS: SENNOSIDES 8.6MG TABLET PO SCH (21:08)
[2022-07-12] MEDS: FAMOTIDINE 20MG TABLET NG SCH (21:08)
[2022-07-13] VITALS: BP 96/62
[2022-07-13 04:00] VITALS: BP 101/62
[2022-07-13 05:24] LABS: PLATELET ESTIMATE NORMAL
[2022-07-13] MEDS: DEXT 5%/0.45% NACL 1000ML 1,000 ML IV SCH ×2 (05:40→19:07)
[2022-07-13] MEDS: METRONIDAZOLE 500 MG PREMIX 100 ML IV SCH ×2 (06:00→18:54)
[2022-07-13 08:00] VITALS: BP 109/65
[2022-07-13] MEDS ORDERED: FAMOTIDINE 20MG/2ML VIAL IV SCH (09:00)
[2022-07-13] MEDS: LEVETIRACETAM 500MG/5ML CUP PO SCH ×2 (09:58→22:02)
[2022-07-13] MEDS: ARIPIPRAZOLE 5MG TABLET PO SCH ×2 (09:59→22:02)
[2022-07-13] MEDS: DEXAMETHASONE 4MG TABLET PO SCH (09:59)
[2022-07-13] MEDS: FAMOTIDINE 20MG TABLET NG SCH ×2 (09:59→22:02)
[2022-07-13] MEDS: FOLIC ACID 1MG TABLET PO SCH (09:59)
[2022-07-13] MEDS: DOCUSATE SODIUM SUGAR FREE 100MG/10ML UDC NG SCH (09:59)
[2022-07-13 12:00] VITALS: BP 110/64
[2022-07-13] MEDS ORDERED: NALOXONE HCL 0.4MG/ML VIAL IV PRN (14:45)
[2022-07-13] MEDS: MORPHINE SULFATE 2 MG/ML CPJ (NOT FOR IM USE) IV PRN (15:46)
[2022-07-13 16:00] VITALS: BP 116/67
[2022-07-13] MEDS: CEFTRIAXONE 1,000 MG in DEXTROSE 5% WATER 50 ML IV SCH (17:00)
[2022-07-13 20:00] VITALS: BP 107/61
[2022-07-13] MEDS: SENNOSIDES 8.6MG TABLET PO SCH (22:02)
[2022-07-14] VITALS: BP 100/57
[2022-07-14 04:00] VITALS: BP 104/60
[2022-07-14] MEDS: METRONIDAZOLE 500 MG PREMIX 100 ML IV SCH ×2 (06:25→20:52)
[2022-07-14] MEDS: FOLIC ACID 1MG TABLET PO SCH (09:00)
[2022-07-14] MEDS: DOCUSATE SODIUM SUGAR FREE 100MG/10ML UDC NG SCH (09:00)
[2022-07-14] MEDS: LEVETIRACETAM 500MG/5ML CUP PO SCH ×2 (09:00→20:52)
[2022-07-14] MEDS: FAMOTIDINE 20MG TABLET NG SCH ×2 (09:00→20:52)
[2022-07-14] MEDS: ARIPIPRAZOLE 5MG TABLET PO SCH ×2 (09:00→20:52)
[2022-07-14] MEDS: DEXAMETHASONE 4MG TABLET PO SCH (09:00)
[2022-07-14] MEDS: MORPHINE SULFATE 2 MG/ML CPJ (NOT FOR IM USE) IV PRN (10:42)
[2022-07-14 12:00] VITALS: BP 82/57
[2022-07-14 16:00] VITALS: BP 112/58
[2022-07-14] MEDS: CEFTRIAXONE 1,000 MG in DEXTROSE 5% WATER 50 ML IV SCH (17:00)
[2022-07-14 20:00] VITALS: BP 111/59
[2022-07-14] MEDS: SENNOSIDES 8.6MG TABLET PO SCH (20:52)
[2022-07-15] VITALS: BP 110/57
[2022-07-15 04:00] VITALS: BP 114/55
[2022-07-15] MEDS: METRONIDAZOLE 500 MG PREMIX 100 ML IV SCH ×2 (06:50→17:03)
[2022-07-15 08:00] VITALS: BP 112/59
[2022-07-15] MEDS: FAMOTIDINE 20MG TABLET NG SCH ×3 (08:26→23:31)
[2022-07-15] MEDS: LEVETIRACETAM 500MG/5ML CUP PO SCH ×3 (08:26→23:31)
[2022-07-15] MEDS: DOCUSATE SODIUM SUGAR FREE 100MG/10ML UDC NG SCH (08:26)
[2022-07-15] MEDS: ARIPIPRAZOLE 5MG TABLET PO SCH ×3 (08:27→23:31)
[2022-07-15] MEDS: DEXAMETHASONE 4MG TABLET PO SCH (08:27)
[2022-07-15] MEDS: FOLIC ACID 1MG TABLET PO SCH (08:27)
[2022-07-15 12:00] VITALS: BP 104/60
[2022-07-15 16:00] VITALS: BP 102/56
[2022-07-15] MEDS: CEFTRIAXONE 1,000 MG in DEXTROSE 5% WATER 50 ML IV SCH (16:13)
[2022-07-15 20:00] VITALS: BP 101/59
[2022-07-15] MEDS: SENNOSIDES 8.6MG TABLET PO SCH ×2 (21:00→23:31)
[2022-07-16] VITALS: BP 107/64
[2022-07-16] MEDS: MORPHINE SULFATE 2 MG/ML CPJ (NOT FOR IM USE) IV PRN ×2 (00:07→04:49)
[2022-07-16 04:00] VITALS: BP 100/58
[2022-07-16] MEDS: METRONIDAZOLE 500 MG PREMIX 100 ML IV SCH ×2 (06:16→17:54)
[2022-07-16 08:00] VITALS: BP 101/58
[2022-07-16] MEDS: DEXAMETHASONE 4MG TABLET PO SCH (08:43)
[2022-07-16] MEDS: DOCUSATE SODIUM SUGAR FREE 100MG/10ML UDC NG SCH (08:43)
[2022-07-16] MEDS: LEVETIRACETAM 500MG/5ML CUP PO SCH ×2 (08:43→20:38)
[2022-07-16] MEDS: ARIPIPRAZOLE 5MG TABLET PO SCH (08:43)
[2022-07-16] MEDS: FAMOTIDINE 20MG TABLET NG SCH ×2 (08:43→20:38)
[2022-07-16 12:00] VITALS: BP 103/69
[2022-07-16] MEDS ORDERED: IPRATROPIUM/ALBUTEROL 0.5-3(2.5)MG/3ML NEB HHN PRN (15:45)
[2022-07-16 16:00] VITALS: BP 102/61
[2022-07-16] MEDS: CEFTRIAXONE 1,000 MG in DEXTROSE 5% WATER 50 ML IV SCH (16:43)
[2022-07-16 20:00] VITALS: BP 99/56
[2022-07-16] MEDS: SENNOSIDES 8.6MG TABLET PO SCH (20:38)
[2022-07-17] VITALS (7 sets, daily range): BP systolic 74–103; BP diastolic 38–64
[2022-07-17 06:39] LABS: HEMATOCRIT 37.1 % (42.0-52.0); MEAN CORPUSCULAR HEMOGLOBIN 31.4 pg (28.0-32.0); PLATELET 237 x1000/uL (130-400); RED BLOOD CELL COUNT 3.82 mill/uL (4.7-6.1); RED CELL DISTRIBUTION WIDTH 18.8 % (11.6-14.6)
[2022-07-17] MEDS: METRONIDAZOLE 500 MG PREMIX 100 ML IV SCH (06:58)
[2022-07-17] MEDS: FAMOTIDINE 20MG TABLET NG SCH ×2 (08:40→20:51)
[2022-07-17] MEDS: LEVETIRACETAM 500MG/5ML CUP PO SCH ×2 (08:40→20:51)
[2022-07-17] MEDS: DOCUSATE SODIUM SUGAR FREE 100MG/10ML UDC NG SCH (08:40)
[2022-07-17] MEDS: DEXAMETHASONE 4MG TABLET PO SCH (08:40)
[2022-07-18] VITALS: BP 68/35
[2022-07-18 04:00] VITALS: BP 66/38
[2022-07-18 08:00] VITALS: BP 65/30
[2022-07-18] MEDS: FAMOTIDINE 20MG TABLET NG SCH (08:49)
[2022-07-18] MEDS: LEVETIRACETAM 500MG/5ML CUP PO SCH (08:49)
== END 2022-07-18 11:15 | DRG 110 ==
LOC: ER 15:52 → 8WST 06-15 06:10 → ENRESERV 06-15 07:48 → 8WST 06-16 21:16 → 6EST 06-28 13:36 → MICUNO 07-06 17:37 → 6WST 07-06 20:08 → 7WST 07-09 22:44
PROVIDERS: ADMIT Internal Medicine; ATTEND Internal Medicine
PROC: 30233N1 Transfusion of Nonautologous Red Blood Cells into Peripheral Vein, Percutaneous Approach (ICD-10-PCS; principal; 2022-06-16)
DX: C76.0 Malignant neoplasm of head, face and neck (principal); A41.59 Other Gram-negative sepsis; J96.01 Acute respiratory failure with hypoxia; J12.82 Pneumonia due to coronavirus disease 2019; J69.0 Pneumonitis due to inhalation of food and vomit; R65.21 Severe sepsis with septic shock; U07.1 COVID-19; D84.9 Immunodeficiency, unspecified; C78.7 Secondary malignant neoplasm of liver and intrahepatic bile duct; K92.1 Melena; D64.9 Anemia, unspecified; Z66 Do not resuscitate; E43 Unspecified severe protein-calorie malnutrition; I71.4 Abdominal aortic aneurysm, without rupture; R41.89 Other symptoms and signs involving cognitive functions and awareness; F20.9 Schizophrenia, unspecified; E83.52 Hypercalcemia; G40.909 Epilepsy, unspecified, not intractable, without status epilepticus; K52.9 Noninfective gastroenteritis and colitis, unspecified; F32.A Depression, unspecified; Z59.00 Homelessness unspecified; Z68.1 Body mass index [BMI] 19.9 or less, adult
CPT/HCPCS: 36415; 36600; 70486; 71045; 74018; 74176; 76700; 80048; 80076; 80202; 80320; 81003; 82140; 82270; 82375; 82607; 82728; 82746; 82805; 82962; 83540; 83550; 83605; 84145; 85014; 85018; 85025; 85027; 86359; 86360; 86850; 86900; 86920; 87077; 87186; 87426; 92610; 93005; 93970; 97162; 97164; 97165; 99285; C1893; C9113; C9803; G0378; J0696; J1630; J1885; J1953; J2185; J2270; J2405; J2543; J3370; J3490; J7042; J7060; J8540; P9016; U0003; U0005; A4315; G0480